=== PATIENT | female | born 1975 | race Caucasian/White ===

== ENCOUNTER 2019-08-26 16:47 | Outpatient (CLI) | payer OTHER, SELFPAY ==
--- NOTE | ~2019-08-26 | XR_ITS ---
EXAMINATION: XR chest 2V DATE: 08/26/2019 17:14 INDICATION: Cough and fever TECHNIQUE: PA and lateral views of the chest were obtained. COMPARISON: None FINDINGS: The lungs are clear with no focal airspace opacities, pulmonary edema, pleural effusion or pneumothor ax. The cardiomediastinal silhouette is normal. Visualized bones and soft tissues are unremarkable. IMPRESSION: 1. No acute cardiopulmonary disease. Reviewed, dictated and finalized at location A. [employer]
== END 2019-08-26 16:48 | disposition home or self-care (01) ==
LOC: ANHIMG 16:53
PROVIDERS: PCP Family Medicine; Visit Provider Physician Assistant
DX: R50.9 Fever, unspecified (principal); R05 Cough
CPT/HCPCS: 71046

== ENCOUNTER → 2019-10-23 10:25 | Outpatient (CLI) | payer OTHER, SELFPAY ==
--- NOTE | ~2019-10-23 | MM_ITS ---
EXAMINATION: MM screening [facility] BI w cash HISTORY: Screening mammogram TECHNIQUE: Craniocaudal and mediolateral oblique 3-D tomosynthesis images were obtained and synthetic 2-D images were generated. CAD analysis was submitted and interpreted. COMPARISON: 09/18/2018, 09/10/2017, 08/29/2016 BREAST PARENCHYMAL COMPOSITION: The breasts are extremely dense, which lowers the sensitivity of mamm ography. FINDINGS: RIGHT BREAST: There is an asymmetry in the anterior third of the slightly inner breast on the cranioc audal view 1 cm from the nipple. LEFT BREAST: There is no evidence of suspicious mass, calcification, or architectural distortion to s uggest malignancy. There has been no significant interval change. IMPRESSION: 1. Right breast asymmetry on the craniocaudal view. 2. Additional mammographic views and possible breast ultrasound are recommended. BI-RADS Category 0: Incomplete: Needs additional imaging evaluation. Reviewed, dictated and finalized at location A. IMPRESSION: 1. Right breast asymmetry on the craniocaudal view. 2. Additional mammographic views and possible breast ultrasound are recommended . BI-RADS Category 0: Incomplete: Needs additional imaging evaluation.
== END ==
PROVIDERS: PCP Family Medicine; Visit Provider Nurse Practitioner
DX: Z12.31 Encounter for screening mammogram for malignant neoplasm of breast (principal); R92.8 Other abnormal and inconclusive findings on diagnostic imaging of breast
CPT/HCPCS: 77063; 77067

== ENCOUNTER → 2019-10-28 07:44 | Outpatient (CLI) | payer OTHER, SELFPAY ==
--- NOTE | ~2019-10-28 | MMUS_ITS ---
EXAMINATION: MM diagnostic mammo unilat RT, US breast RT complete HISTORY: Asymmetry reported in anterior third of slightly inner right breast on screening mammogram o f 10/23/2019 TECHNIQUE: Additional 3-D tomosynthesis images of the right breast were performed and synthetic 2-D i mages were generated. CAD analysis was submitted and interpreted. Rolled medial and lateral craniocau edwin views. High resolution complete right breast ultrasound was performed. COMPARISON: 10/23/2019 bilateral digital screening mammogram FINDINGS: MAMMOGRAPHIC FINDINGS: No reproducible mass is evident. ULTRASOUND: There is no evidence of focal abnormal solid or cystic lesion or abnormal shadowing of the right [address]. IMPRESSION: 1. No mammographic evidence of malignancy 2. Routine annual mammographic screening is recommended. BI-RADS Category 1: Negative Reviewed, dictated and finalized at location A. IMPRESSION: 1. No mammographic evidence of malignancy 2. Routine annual mammographic screening is recommended. BI-RADS Category 1: Negative
== END ==
PROVIDERS: Visit Provider Obstetrics & Gynecology Gynecology
DX: R92.8 Other abnormal and inconclusive findings on diagnostic imaging of breast (principal)
CPT/HCPCS: 76641; 77065

== ENCOUNTER → 2020-12-27 17:23 | Outpatient (CLI) | payer OTHER, SELFPAY ==
--- NOTE | ~2020-12-27 | MM_ITS ---
EXAMINATION: MM screening [facility] BI w cash HISTORY: Screening mammogram TECHNIQUE: Craniocaudal and mediolateral oblique 3-D tomosynthesis images were obtained and synthetic 2-D images were generated. Bilateral rotated lateral craniocaudal views. CAD analysis was submitted and interpreted. COMPARISON: 10/28/2019 diagnostic right mammogram and complete right breast ultrasound 10/23/2019, 09/18/2018 bilateral digital screening mammogram examinations 09/10/2017 bilateral digital screening mammogram and complete left breast ultrasound 03/06/2017 complete left breast ultrasound 09/08/2016 bilateral complete breast ultrasound 08/29/2016 bilateral digital screening mammogram BREAST PARENCHYMAL COMPOSITION: The breasts are extremely dense, which lowers the sensitivity of mamm ography. FINDINGS: There is no evidence of suspicious mass, calcification, or architectural distortion to sugg est malignancy in either breast. There has been no suspicious interval change. IMPRESSION: 1. No mammographic evidence of malignancy. 2. Recommend routine screening mammography in one year. BI-RADS Category 1: Negative Reviewed, dictated and finalized at location A.
== END ==
PROVIDERS: Visit Provider Nurse Practitioner
DX: Z12.31 Encounter for screening mammogram for malignant neoplasm of breast (principal)
CPT/HCPCS: 77063; 77067

== ENCOUNTER 2021-07-17 08:02 | Emergency (ER) | payer OTHER, SELFPAY ==
[2021-07-17 08:12] VITALS: BP 120/63; PULSE 90; RESP 16; TEMP 37.4; O2SAT 100
--- NOTE | 2021-07-17 08:39 | ED.URI ---
HPI - URI/Sore Throat General Chief Complaint: Upper Respiratory Infection Stated Complaint: sore throat Time Seen by Provider: 07/17/21 08:29 Source: patient and RN notes reviewed Mode of arrival: ambulatory Limitations: no limitations History of Present Illness HPI Narrative: Patient presents today complaining of1 week history of cough, sore throat, postnasal drip, and hoarseness. Denies fever, shortness of breath, body aches. She did home Covid test 3 to 4 days ago and it was negative. She has been vaccinated against COVID-19. She has been taking ibuprofen and Aleve D with some relief. MD elicited complaint: cough and sore throat Related Data Home Medications Medication Instructions Recorded Confirmed levonorgestrel-ethinyl estradiol 1 tablet PO DAILY 06/23/19 07/17/21 0.1 mg-20 mcg tablet trazodone 50 mg PO HS PRN 07/17/21 07/17/21 Allergies Allergy/AdvReac Type Severity Reaction Status Date / Time lanolin Allergy Mild Rash Verified 08/26/19 15:57 Review of Systems Review of Systems: CONSTITUTIONAL: Denies body aches, fever, chills, or sweats. EYES: Denies visual changes, redness, or discharge. ENT: Denies rhinorrhea, congestion, or otalgia.+Sore throat, Postnasal drip, hoarseness CARDIOVASCULAR: Denies chest pain, palpitations, or edema. RESPIRATORY: Denies dyspnea.+Cough GASTROINTESTINAL: Denies abdominal pain, nausea, vomiting, or diarrhea. GENITOURINARY: Denies dysuria or hematuria. SKIN: Denies rash, itching, or wounds. MUSCULOSKELETAL: Denies back pain, joint pain, or myalgia. NEUROLOGIC: Denies headache, numbness, tingling, or weakness. PSYCH: Denies depression or anxiety. [facility] Surgical History Surgical History Status post endometrial ablation Family History Family History Father Hypertension Diabetes mellitus Social History Social History Smoking status: Never smoker Second hand tobacco smoke exposure: No Alcohol intake: current Alcohol use details: rare Substance use: never Substance use type: does not use Gender identity (if verbalized by the patient): Female Comments At time of signature, I have reviewed and agree with nursing past medical, surgical, social and family history unless otherwise noted. Please see nursing chart for further information. There is no relevant family history pertinent to the presenting complaint Exam Narrative: GENERAL: Well-appearing, well-nourished, and in no acute distress. HEAD: Normocephalic, atraumatic. EYES: EOMI. No redness or drainage. Conjunctivae normal. ENT: Mucous membranes pink and moist. Nares clear. No rhinorrhea. TMs normal bilaterally. Throat Mildly erythematous without edema or exudate. Uvula midline. Voice is slightly hoarse. NECK: Normal AROM. Supple. Bilateral anterior cervical chain lymphadenopathy. CHEST: No respiratory distress. Clear to auscultation. HEART: Regular rate and rhythm. No murmur appreciated. Normal peripheral pulses. EXTREMITIES: Normal range of motion. No edema. SKIN: Warm, dry, no rash. Capillary refill normal. Normal skin turgor. NEURO: No focal deficits. Alert and oriented x3. Gait steady. PSYCH: Normal affect. No signs of depression or anxiety. Course Vital Signs Vital signs: Vital Signs Temperature 99.3 F 07/17/21 08:12 Pulse Rate 90 07/17/21 08:12 Respiratory Rate 16 07/17/21 08:12 Blood Pressure 120/63 07/17/21 08:12 Pulse Oximetry 100 07/17/21 08:12 Temperature 99.3 F 07/17/21 08:12 Pulse Rate 90 07/17/21 08:12 Respiratory Rate 16 07/17/21 08:12 Blood Pressure 120/63 07/17/21 08:12 Pulse Oximetry 100 07/17/21 08:12 Reviewed MDM - URI/Sore Throat Differential Diagnosis Differential diagnosis: Likely upper respiratory infection, sinusitis, viral infection
== END 2021-07-17 08:58 | disposition home or self-care (01) ==
PROVIDERS: Emergency Provider Nurse Practitioner; PCP Family Medicine
DX: J04.0 Acute laryngitis (principal); J06.9 Acute upper respiratory infection, unspecified
CPT/HCPCS: 87081; 87880; 99213; G0463

== ENCOUNTER 2021-11-14 01:17 | Day surgery (SDC) | payer OTHER, SELFPAY ==
[2021-10-28 15:41] VITALS: BMI 21.5
[2021-11-14 07:39] VITALS: BP 100/85; PULSE 98; RESP 16; TEMP 36.7; O2SAT 100
[2021-11-14] MEDS: LACTATED RINGERS 1,000 ML 150 ML IV CONT (07:51)
--- NOTE | 2021-11-14 08:04 | P.PNAN_ITS ---
Anes - Initial Pre Proc Eval Procedure: Operation Date: 11/14/21 08:30 Proposed Procedures p Screening Colonoscopy - Ronn Cuba MD Date/Time: 11/14/21 08:04 Surgeon: Ronn Cuba MD Pre Op Diagnosis: neoplasm screening Patient Data Age: 46 Gender: F Height: 1.63 m Weight: 60.2 kg Last Vital Signs Temp 36.7 C 11/14/21 07:39 Pulse 98 11/14/21 07:39 Resp 16 11/14/21 07:39 BP 100/85 11/14/21 07:39 Pulse Ox 100 11/14/21 07:39 Allergies Allergy/AdvReac Type Severity Reaction Status Date / Time lanolin Allergy Mild Rash Verified 11/14/21 07:37 Home Medications Medication Instructions Recorded Confirmed Type levonorgestrel-ethinyl estradiol 1 tablet PO DAILY 06/23/19 11/14/21 History 0.1 mg-20 mcg tablet trazodone 50 mg PO HS PRN 07/17/21 11/14/21 History Patient hx anesthesia problems: none Family hx anesthesia problems: none Results Review: All pre-operative results and documents have been reviewed as part of the pre-operative evaluation. [facility] Surgical History Surgical History (Updated 11/14/21 @ 08:04 by Lev Moore MD) History of endometrial ablation Status post endometrial ablation Family History Family History Father Hypertension Diabetes mellitus Social History Social History Smoking status: Never smoker Second hand tobacco smoke exposure: No Alcohol intake: never Alcohol use details: rare Substance use: never Substance use type: does not use Living arrangements: with family Gender identity (if verbalized by the patient): Female Spiritual care concerns: No Anes - Eval Final PreProcedure Day of Procedure 11/14/21 08:04 Patient weight: normal Heart: regular rate and rhythm Lungs: clear to auscultation Airway: Mallampati scale class 1 Neurological: alert and oriented Last oral intake: >/= 8 hours ASA classification: I Emergent: no Anesthetic plan: proceed Anesthesia type and monitoring: general GIVS and standard monitoring Results Review: All pre-operative results and documents have been reviewed as part of the pre-operative evaluation. Informed Consent: The patient's anesthetic plan and its attendant risks and benefits were discussed with the patient/family/POA. Questions were solicited and answers provided to the satisfaction of the patient/family/POA.
--- NOTE | 2021-11-14 08:15 | WPDGICN ---
Assessment and Plan Assessment and plan (1) Family history of colonic polyps: Code(s): Z83.71 - Family history of colonic polyps Status: Acute Assessment and Plan: Family history is significant her mother had colon polyps a cousin had colon cancer. Plan is for surveillance colonoscopy now and consider this a 5 year intervals in the future. GI Consult Note Consult date/time: 11/14/21 08:15 HPI: Vivian Rodriguez is a 46 year old female Presents for screening colonoscopy. She has never had screening prior to this. Her current weight appetite bowel movements are normal. Family history is significant that her mother had colon polyps. A cousin had colon cancer at age 30. Her father has had ulcerative colitis. Patient reports her bowel habits are normal with no bleeding or difficulties. Patient does report having twisted her ankle yesterday it is swollen and she desires to go to the emergency room but prefers to defer this till after colonoscopy. Review of Systems Review of Systems: All systems reviewed & are unremarkable except as noted in HPI and below PMFSH Surgical History Surgical History (Updated 11/14/21 @ 08:04 by Lev Moore MD) History of endometrial ablation Status post endometrial ablation Family History Family History Father Hypertension Diabetes mellitus Social History Social History Smoking status: Never smoker Second hand tobacco smoke exposure: No Alcohol intake: never Alcohol use details: rare Substance use: never Substance use type: does not use Living arrangements: with family Gender identity (if verbalized by the patient): Female Spiritual care concerns: No Meds Home Medications and Allergies Home Medications Medication Instructions Recorded Confirmed Type levonorgestrel-ethinyl estradiol 1 tablet PO DAILY 06/23/19 11/14/21 History 0.1 mg-20 mcg tablet trazodone 50 mg PO HS PRN 07/17/21 11/14/21 History Allergies Allergy/AdvReac Type Severity Reaction Status Date / Time lanolin Allergy Mild Rash Verified 11/14/21 07:37 Vital Signs Vital Signs - 24 hr 11/14/21 07:39 Temperature 98.1 F Pulse Rate 98 Respiratory Rate 16 Blood Pressure 100/85 Pulse Oximetry 100 Exam Narrative: Physical exam reveals patient be alert. Vital signs stable. HEENT exam is and unremarkable. Patient is anicteric. Lungs are clear to auscultation and percussion. Heart is without murmur or extra sounds. Abdominal exam bowel sounds are present soft nontender with no hepatosplenomegaly. Digital external rectal exam is normal. Her left ankle is somewhat bruised and swollen.
[2021-11-14 08:42] VITALS: BP 101/56; PULSE 70; RESP 16; O2SAT 100
[2021-11-14 08:52] VITALS: BP 111/73; PULSE 74; RESP 16; O2SAT 100
--- NOTE | 2021-11-14 09:09 | SUR.PHASEII ---
pt had syncopal episode yesterday and sprained left ankle. pt discharged from postop area and taken to er for ankle evaluation.
== END 2021-11-14 09:06 | disposition home or self-care (01) ==
PROVIDERS: PCP Family Medicine; Visit Provider Internal Medicine Gastroenterology
PROC: 0DJD8ZZ Inspection of Lower Intestinal Tract, Via Natural or Artificial Opening Endoscopic (ICD-10-PCS; CPT 45378; principal; 2021-11-14 08:30)
DX: Z12.11 Encounter for screening for malignant neoplasm of colon (principal); Z83.71 Family history of colonic polyps
CPT/HCPCS: 45378; J2704; J7120

== ENCOUNTER 2021-11-14 09:17 | Emergency (ER) | payer OTHER, SELFPAY ==
--- NOTE | ~2021-11-14 | XR_ITS ---
XR tibia fibula LT 2V DATE: 11/14/2021 10:22 INDICATION: Fall. Pain, tenderness. Ankle pain TECHNIQUE: AP and lateral views COMPARISON: None FINDINGS: There is a linear oblique fracture of the neck and proximal shaft of the proximal fibula, w ith no significant displacement or angulation. There is a transverse nondisplaced fracture of the medial malleolus. There is lateral soft tissue swelling of the ankle. IMPRESSION: Proximal fibular and medial malleolar fractures Reviewed, dictated and finalized at location A.
--- NOTE | ~2021-11-14 | XR_ITS ---
EXAMINATION: XR ankle LT min 3V DATE: 11/14/2021 10:04 INDICATION: Medial sided left ankle pain post fall TECHNIQUE: Anteroposterior, oblique, mortise, and lateral views of the left ankle were obtained. COMPARISON: None. FINDINGS: Nondisplaced horizontal fracture across the medial malleolus with intra-articular extension at the le forest of the medial border of the ankle mortise. No other fractures identified. Joint spaces are normal . Soft tissue swelling about the left ankle most prominent of the lateral malleolus and extending ove r the dorsum of the midfoot. IMPRESSION: 1. Nondisplaced medial malleolar fracture. Reviewed, dictated and finalized at location B.
[2021-11-14 09:29] VITALS: BP 116/70; PULSE 79; RESP 16; TEMP 36.3; O2SAT 100
--- NOTE | 2021-11-14 10:09 | ED.LOWEXIN ---
HPI - Extremity Injury (Lower) General Chief Complaint: Extremity Injury, Lower Stated Complaint: Injury Time Seen by Provider: 11/14/21 09:59 History of Present Illness HPI Narrative: Patient is a 46-year-old female here for evaluation of left ankle pain after fall yesterday. Patient states she was prepping for a colonoscopy and felt lightheaded, passed out, and woke up on the ground. She did not hit her head in the injury. States that she woke up on her knees, with her feet bent under her buttocks. Since the injury she has reported severe left medial ankle pain. She had numbness for about 10 minutes in her left foot initially, but this resolved without intervention. She has been walking with lots of pain. She has not taken anything for the pain because of her colonoscopy. Underwent her colonoscopy this morning without issues. Related Data Home Medications Medication Instructions Recorded Confirmed levonorgestrel-ethinyl estradiol 1 tablet PO DAILY 06/23/19 11/14/21 0.1 mg-20 mcg tablet trazodone 50 mg PO HS PRN 07/17/21 11/14/21 Allergies Allergy/AdvReac Type Severity Reaction Status Date / Time lanolin Allergy Mild Rash Verified 11/14/21 07:37 Review of Systems Review of Systems: Gen: Denies fevers or chills Eyes: Denies eye pain or visual change ENT: Denies congestion Respiratory: Denies shortness of breath or cough CV: Denies chest pain or palpitations GI: Denies abdominal pain nausea, emesis or diarrhea denies burning, urgency, frequency or hematuria Musculoskeletal: Reports left ankle pain. Denies back pain or muscle pain Neuro: Denies numbness, tingling, weakness or focal weakness Skin: Denies rash Except as documented, all other systems reviewed and negative All systems reviewed & are unremarkable except as noted in HPI and below PMFSH Surgical History Surgical History History of endometrial ablation Status post endometrial ablation Family History Family History Father Hypertension Diabetes mellitus Social History Social History Smoking status: Never smoker Second hand tobacco smoke exposure: No Alcohol intake: never Alcohol use details: rare Substance use: never Substance use type: does not use Gender identity (if verbalized by the patient): Female Spiritual care concerns: No Exam Narrative: Gen: Pleasant, alert, oriented female Eyes: EOMI, no icterus Pulm: Respirations even and unlabored, symmetric thorax expansion, no audible stridor or visible cyanosis CV: 2+ DP and PT pulses bilaterally. Clear to auscultation. Regular rate. GI: No distension, no voluntary/involuntary guarding Neuro: Sensation intact over distal feet bilaterally. AOx4, moves all extremities without apparent difficulty or weakness, follows commands MSK: Tender to palpation over left medial malleolus with overlying swelling. Positive syndesmosis squeeze test on the left. Full range of motion in left foot with pain particularly with dorsiflexion and inversion. Sensation intact distally. Able to move toes without trouble. Skin: Pale ecchymosis over left medial malleolus. Psych: Normal mood/affect, insight/judgement good, adequate fund of knowledge, recent/remote memory intact Course Consultations Consultation #1: Spoke with Dr. Tinoco, recommended stirrup splint and will see in clinic, history suspicious for syndesmotic injury Date: 11/14/21 Time: 12:00 Vital Signs Vital signs: Vital Signs Temperature 97.4 F L 11/14/21 09:29 Pulse Rate 79 11/14/21 09:29 Respiratory Rate 16 11/14/21 09:29 Blood Pressure 116/70 11/14/21 09:29 Pulse Oximetry 100 11/14/21 09:29 Temperature 97.4 F L 11/14/21 09:29 Pulse Rate 84 11/14/21 12:10 Respiratory Rate 16 11/14/21 12:10 Blood Pressure 132/88 11/14/21 12:10 Pu
[2021-11-14] MEDS: IBUPROFEN 400 MG TABLET 800 MG PO (10:31)
[2021-11-14 12:10] VITALS: BP 132/88; PULSE 84; RESP 16; O2SAT 98
--- NOTE | 2021-11-24 07:42 | PC.NURSE ---
LATE ENTRY This note is being entered to document information to the patient's record. The following information was omitted on [11/14/21], by [nohelia knutson]. pt has a short leg stirrup to lower left extremity
== END 2021-11-14 12:15 | disposition home or self-care (01) ==
PROVIDERS: Emergency Provider Emergency Medicine; PCP Family Medicine
DX: S82.55XA Nondisplaced fracture of medial malleolus of left tibia, initial encounter for closed fracture (principal); S82.435A Nondisplaced oblique fracture of shaft of left fibula, initial encounter for closed fracture; W18.39XA Other fall on same level, initial encounter
CPT/HCPCS: 29515; 73590; 73610; 99284; A9270

== ENCOUNTER 2022-01-27 15:30 | Outpatient (RCR) | payer OTHER, SELFPAY ==
--- NOTE | 2021-12-16 15:26 | PTOPEVAL ---
PHYSICAL THERAPY INITIAL EVALUATION. Thank you for referring Vivian Rodriguez to [facility].? The patient is scheduled to be seen for therapy?2x/week for 6 weeks. Please review, sign, date and return this plan of care TREMAINE. I agree with and certify that the following plan of care is medically necessary. Referring Physician Date Attending Provider: Rick Tinoco MD *PT Outpatient Evaluation Start: 12/16/21 Evaluation Information Diagnosis L ankle fracture Onset 11/13/21 Subjective Information Pt states she fell an broke Query Text:As Reported By Patient/ her ankle. She has been trying Family to put more weight on it since she was told on 12/14/21 that she is now weight bearing as tolerated. She states she still has some swelling, she treats this with ice regularly . Pt has a home office in the basement, she has moved her office to the main level but would like it to be back downstairs. Pt states prior to her fall she was walking 9 miles a day. Pain Assessment Left Ankle(s) Reported Pain Level 0 Pain Description Tightness Pain Frequency Acute,Intermittent Lowest Pain Intensity 0 Greatest Pain Intensity 3 Pain Aggravating Factors Exercise/Activity Ankle/Foot Range of Motion Left Ankle Dorsiflexion With Knee Extension -10 active Ankle Dorsiflexion With Knee Extension 3 passive Ankle Dorsiflexion With Knee Flexed -10 active Ankle Dorsiflexion With Knee Flexed 0 passive Ankle Plantarflexion Range of Motion - 50 active Query Text: Ankle Eversion Range of Motion - Active 15 Ankle Eversion Range of Motion - Passive 20 Ankle Inversion Range of Motion - Active 20 Ankle Inversion Range of Motion -passive 25 Ankle Range of Motion Comments toe ROM WNL, midtarsal joint play is equal and pain free Foot/Toe Range of Motion Comments R ankle dorsiflexion with knee bend 12 R ankle plantarflexion 72 R ankle inversion 42 R ankle eversion 20 Lower Extremity Muscle Strength Testing Gross Lower Extremity Strength R single leg stance: 30s - test stopped L single leg stance: <1s unable to tolerate SLS due to pain An
--- NOTE | 2022-01-27 16:17 | PTOPEVAL ---
PHYSICAL THERAPY PROGRESS REPORT AND DISCHARGE SUMMARY. Thank you for referring Vivian Rodriguez to [facility].? The patient is to be discharged from skilled physical therapy services at this time. Please review, sign, date and return this plan of care TREMAINE. I agree with and certify that the following plan of care is medically necessary. Referring Physician Date Attending Provider: Rick Tinoco MD Evaluation Information Diagnosis L ankle fracture Onset 11/13/21 Subjective Information Pt states she is doing really Query Text:As Reported By Patient/ well she things. 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 She states she is walking 3 miles a day with only mild reports of ankle pain. Pt states she she is still planning to progress up to 9 miles a day. She rides 8 miles a day on a stationary bike. Pain Assessment Left Ankle(s) Reported Pain Level 0 Pain Description Aching Lowest Pain Intensity 0 Greatest Pain Intensity 1 Lower Extremity Range of Motion Ankle/Foot Range of Motion Left Ankle Dorsiflexion With Knee Extension 10 active Ankle Dorsiflexion With Knee Extension 15 passive Ankle Dorsiflexion With Knee Flexed 8 active Ankle Dorsiflexion With Knee Flexed 10 passive Ankle Plantarflexion Range of Motion - 60 active Ankle Eversion Range of Motion - Active 20 Ankle Eversion Range of Motion - Passive 25 Ankle Inversion Range of Motion - Active 25 Ankle Inversion Range of Motion -passive 30 Ankle Range of Motion Comments toe ROM WNL, midtarsal joint play is equal and pain free Foot/Toe Range of Motion Comments R ankle dorsiflexion with knee bend 12 R ankle plantarflexion 72 R ankle inversion 42 R ankle eversion 20 Lower Extremity Muscle Strength Testing Gross Lower Extremity Strength R single leg stance: 30s - test stopped L single leg stance: 30s - test stopped Ankle Strength Left Ankle Dorsiflexion Strength 5 Normal Ankle Eversion Strength 5 Normal Ankle Inversion Strength 5 Normal Balance Assessment Time Up Go (TUG) Timed Up and Go Test (TUG) (Seconds) 7 Comments Initially: 17s, with crutches 01/27/22: 7s without AD 5 Time Sit to Stand Time in Seconds
== END 2022-01-30 08:38 | disposition home or self-care (01) ==
LOC: ANHPT 15:30
PROVIDERS: PCP Family Medicine; Visit Provider Orthopaedic Surgery
DX: S82.52XD Displaced fracture of medial malleolus of left tibia, subsequent encounter for closed fracture with routine healing (principal)
CPT/HCPCS: 97110; 97112; 97116; 97140; 97161; 97530

== ENCOUNTER → 2022-03-16 16:41 | Outpatient (CLI) | payer OTHER, SELFPAY ==
--- NOTE | ~2022-03-16 | MM_ITS ---
EXAMINATION: MM screening [facility] BI w cash HISTORY: Screening TECHNIQUE: Craniocaudal and mediolateral oblique 3-D tomosynthesis images were obtained and synthetic 2-D images were generated. CAD analysis was submitted and interpreted. COMPARISON: Comparison to multiple prior studies sequentially, with oldest reviewed study dated 01/2017. BREAST PARENCHYMAL COMPOSITION: The breasts are extremely dense, which lowers the sensitivity of mamm ography FINDINGS: There is no evidence of suspicious mass, calcification, or architectural distortion to sugg est malignancy in either breast. There has been no suspicious interval change. IMPRESSION: 1. No mammographic evidence of malignancy. 2. Recommend routine screening mammography in one year. BI-RADS Category 1: Negative Reviewed, dictated and finalized at location A.
== END ==
PROVIDERS: PCP Family Medicine; Visit Provider Obstetrics & Gynecology Gynecology
DX: Z12.31 Encounter for screening mammogram for malignant neoplasm of breast (principal)
CPT/HCPCS: 77063; 77067

== ENCOUNTER → 2022-09-19 10:46 | Outpatient (CLI) | payer OTHER, SELFPAY ==
--- NOTE | ~2022-09-19 | US_ITS ---
EXAMINATION: US transvaginal DATE: 09/19/2022 11:37 INDICATION: Abdominal bloating Comparison:No prior studies for comparison. TECHNIQUE: Multiple endovaginal sonographic images of the pelvis performed. FINDINGS: The uterus measures 8.9 x 4.3 x 4.7 cm. There are multiple small uterine fibroids, largest measuring 3.5 cm. The endometrial complex measures 7 mm. The right ovary measures 2.5 x 1.4 x 2.1 cm and the left ovary measures 1.9 x 1.6 x 1.2 cm. There ar e small follicles in each ovary. Normal doppler signal in both ovaries. There is no free fluid in the pelvis. There are no abnormal masses seen on either side. IMPRESSION: 1. Multiple uterine fibroids, largest measuring up to 3.5 cm. Reviewed, dictated and finalized at location L. [employer] E[employer]IST
== END ==
PROVIDERS: PCP Family Medicine; Visit Provider Nurse Practitioner
DX: R14.0 Abdominal distension (gaseous) (principal); D25.9 Leiomyoma of uterus, unspecified
CPT/HCPCS: 76830

== ENCOUNTER 2024-01-22 15:46 | Outpatient (CLI) | payer OTHER, SELFPAY ==
--- NOTE | ~2024-01-22 | MM_ITS ---
EXAMINATION: MM screening marylin BI w cash HISTORY: Screening mammogram TECHNIQUE: Craniocaudal and mediolateral oblique 3-D tomosynthesis images were obtained and synthetic 2-D images were generated. CAD analysis was submitted and interpreted. COMPARISON: 03/16/2022, 12/27/2020, 10/28/2019 BREAST PARENCHYMAL COMPOSITION:Dense: The breasts are extremely dense, which lowers the sensitivity o f mammography. FINDINGS: No suspicious mass, calcification, or architectural distortion are identified in either brandie ast to suggest malignancy. There has been no suspicious interval change. IMPRESSION: No mammographic evidence of malignancy. Recommend routine screening mammography in one year. BI-RADS Category 1: Negative Reviewed, dictated and finalized at location M.
== END 2024-01-22 15:47 ==
LOC: MICIMG 15:47
PROVIDERS: PCP Nurse Practitioner; Visit Provider Nurse Practitioner
DX: Z12.31 Encounter for screening mammogram for malignant neoplasm of breast (principal)
CPT/HCPCS: 77063; 77067

== ENCOUNTER 2024-03-13 16:37 | Emergency (ER) | payer OTHER, SELFPAY ==
[2024-03-13 16:56] VITALS: BP 136/72; PULSE 71; RESP 18; TEMP 37.2; O2SAT 100
--- NOTE | 2024-03-13 17:37 | ED.SKABFB ---
HPI - Skin/Abscess/Foreign Bdy General Chief complaint: Skin/Abscess/Foreign Body Stated complaint: Rash Time Seen by Provider: 03/13/24 17:38 Source: patient, RN notes reviewed and old records reviewed Mode of arrival: ambulatory Limitations: no limitations History of Present Illness HPI narrative: 48 year old female who presents to [facility] care with complaints of rash to her face which started yesterday after noon on chin and has gradually noted spreading on left side of face, right side of mouth and left nares with none around eyes and small area on her upper chest area which is itchy. Patient reports that she has not used any new skin products, no new soaps.foods, medication or any new laundry products. Patient reports that she has inside outside dog that she was hugging on and could of gotten exposed to something then. MD complaint: rash Onset (ago): day(s) (day 2 of symptoms) Location: face and chest (upper chest) Severity: moderate Treatments prior to arrival: other (calamine lotion and ivydry) Related Data Home Medications Medication Instructions Recorded Confirmed levonorgestrel-ethinyl estradiol 1 tablet PO DAILY 06/23/19 03/13/24 0.1 mg-20 mcg tablet (Vienva) trazodone 50 mg tablet 50 mg PO HS PRN Sleep 07/17/21 03/13/24 Allergies Allergy/AdvReac Type Severity Reaction Status Date / Time lanolin Allergy Mild Rash Verified 12/19/22 15:59 Review of Systems Review of Systems: CONSTITUTIONAL: Denies fever, chills, or sweats. CARDIOVASCULAR: Denies chest pain, palpitations, or edema. RESPIRATORY: Denies cough or dyspnea. SKIN: Reports rash on chin starting on chin yesterday and spreading up left cheek,left nares, and by right side of mouth with concern of rash going to eyes, also small area to chest, states is itchy MUSCULOSKELETAL: Denies joint pain or myalgia. NEUROLOGIC: Denies headache, numbness, or weakness. All systems reviewed & are unremarkable except as noted in HPI and below PMFSH Past Medical History Medical History (Updated 03/14/24 @ 12:22 by Lisa Aburto NP) Fracture of left ankle Migraine Surgical History Surgical History History of endometrial ablation Status post endometrial ablation Family History Family History Father Hypertension Diabetes mellitus Mother Asthma Grandparent Cancer Diabetes mellitus Social History Social History Smoking status: Never smoker Second hand tobacco smoke exposure: No Alcohol intake: current Alcohol use details: rare Substance use: never Substance use type: does not use Living arrangements: with family Occupation/Education: occupation 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 There is no relevant family history pertinent to the presenting complaint Exam Narrative: GENERAL: Well-appearing, well-nourished, and in no acute distress. HEAD: Normocephalic, atraumatic. EYES: PERRLA, conjunctivae clear, and EOMI. ENT: Mucous membranes moist. Oropharynx without edema, erythema or lesions. NECK: Supple. No lymphadenopathy CHEST: Clear to auscultation. No respiratory distress. SAO2 100% on room air HEART: Regular rate and rhythm. SKIN: Warm, dry.? Patches of red raised rash to chin,right side of mouth,left nares,left cheek area and to upper chest area which is itchy NEURO:? Alert and oriented x3. PSYCH: Normal mood and affect Course Course Emergency Course: Patient is aware of diagnosis, understands and agrees to treatment plan.? Anticipatory guidance given.? Patient agrees to follow-up as directed and is aware of reaso
[2024-03-13] MEDS: methylPREDNISolone ACETATE 80 MG/ML VIAL IM (17:52)
== END 2024-03-13 18:07 | disposition home or self-care (01) ==
PROVIDERS: Emergency Provider Registered Nurse; PCP Family Medicine
DX: L25.9 Unspecified contact dermatitis, unspecified cause (principal)
CPT/HCPCS: 96372; 99213; G0463; J1010

== ENCOUNTER 2025-02-03 15:56 | Outpatient (CLI) | payer OTHER, SELFPAY ==
--- NOTE | ~2025-02-03 | MM_ITS ---
EXAMINATION: MM screening marylin BI w cash HISTORY: Screening TECHNIQUE: Craniocaudal and mediolateral oblique 3-D tomosynthesis images were obtained and synthetic 2-D images were generated. CAD analysis was submitted and interpreted. COMPARISON: Comparison to multiple prior studies sequentially, with oldest reviewed study dated 09/18. BREAST PARENCHYMAL COMPOSITION: Dense: The breasts are extremely dense, which lowers the sensitivity of mammography. FINDINGS: There is no evidence of suspicious mass, calcification, or architectural distortion to sugg est malignancy in either breast. There has been no suspicious interval change. IMPRESSION: 1. No mammographic evidence of malignancy. 2. Recommend routine screening mammography in one year. BI-RADS Category 1: Negative Reviewed, dictated and finalized at location B.
== END 2025-02-03 15:57 | disposition home or self-care (01) ==
PROVIDERS: PCP Nurse Practitioner; Visit Provider Nurse Practitioner
DX: Z12.31 Encounter for screening mammogram for malignant neoplasm of breast (principal)
CPT/HCPCS: 77063; 77067

== ENCOUNTER 2025-07-02 18:11 | Emergency (ER) | payer OTHER, SELFPAY ==
[2025-07-02 18:18] VITALS: BP 134/68; PULSE 70; RESP 18; TEMP 36.5; O2SAT 99
--- NOTE | 2025-07-02 18:26 | ED.FEMALEGU ---
HPI - Female Genitourinary General Chief complaint: Urogenital-Female Stated complaint: Urinary Problem Time Seen by Provider: 07/02/25 18:20 Source: patient and RN notes reviewed Mode of arrival: ambulatory Limitations: no limitations History of Present Illness HPI Narrative: 49-year-old female presents Express Care complaining of urinary symptoms for 6 days. Patient reports having dysuria, increased frequency, hesitancy, and hematuria. Patient denies any fevers, abdominal pain, body aches, chills, nausea, vomiting, diarrhea, vaginal bleeding, vaginal discharge. Patient took Azos today to help with symptoms.. Patient denies any significant past medical history. Related Data Home Medications ?Medication ?Instructions ?Recorded ?Confirmed ?Last Taken ?Type levonorgestrel-ethinyl estradiol 1 tablet PO DAILY 06/23/19 03/24/25 11/12/21 History 0.1 mg-20 mcg tablet (Vienva) trazodone 50 mg tablet 50 mg PO HS PRN Sleep 07/17/21 03/24/25 11/12/21 History Allergies Allergy/AdvReac Type Severity Reaction Status Date / Time lanolin Allergy Mild Rash Verified 07/02/25 18:13 Review of Systems Review of Systems: CONSTITUTIONAL: Denies fever, chills, body aches, or sweats. EYES: Denies visual changes, redness, or discharge. ENT: Denies rhinorrhea, congestion, sore throat, or otalgia. CARDIOVASCULAR: Denies chest pain, palpitations, or edema. RESPIRATORY: Denies cough or dyspnea. GASTROINTESTINAL: Denies abdominal pain, nausea, vomiting, or diarrhea. GENITOURINARY: Positive for dysuria, increased frequency, hesitancy, hematuria. Negative for vaginal bleeding or discharge. SKIN: Denies rash or itching. MUSCULOSKELETAL: Denies back pain, joint pain, or myalgia. NEUROLOGIC: Denies headache, numbness, or weakness. PSYCHIATRIC: Denies anxiety or depression. All other systems reviewed are negative, except as documented in HPI. [facility] Past Medical History Medical History Hereditary essential tremor Fracture of left ankle Migraine Surgical History Surgical History History of endometrial ablation Status post endometrial ablation Family History Family History Father Hypertension Diabetes mellitus Mother Asthma Grandparent Cancer Diabetes mellitus Social History Social History Smoking status: Never smoker Second hand tobacco smoke exposure: No Alcohol intake: current Alcohol use details: rare Substance use: never Substance use type: does not use Living arrangements: with family Occupation/Education: occupation 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 There is no relevant family history pertinent to the patient complaint. Exam Narrative: GENERAL: This is a well-nourished, well-developed adult, in no apparent distress. They are non ill-appearing, nontoxic appearing. HEAD: normocephalic, atraumatic. EYES: Sclera clear/white. Vision is grossly intact. Conjunctiva normal bilaterally. Extraocular movements intact. EARS: External ears normal,Hearing grossly intact. NOSE: External nose normal THROAT: Mucous membranes moist NECK: Normal range of motion CARDIOVASCULAR: Regular rate and rhythm. Normal S1-S2. No clicks, gallops, rubs, murmurs. RESPIRATORY: Respiratory rate normal, respiratory effort nonlabored, no respiratory distress. Lung sounds clear to auscultation throughout. Lung sounds equal bilaterally. No adventitious lung sounds. GASTROINTESTINAL: Abdomen soft, flat, non-tender, nondistended. Bowel sounds are active. No hepato-splenomegaly, or palpable masses. No guarding or rigidity. No rebound tenderness. SKIN: warm, Dry, intact with no suspicious lesions or rash, good texture and turgor. NEURO: awake, alert, and oriented to person, place and time. There were no obvious focal neurologic abnormalities. EXTREMITIES: No joint tenderness, effusion, or edema noted. BACK: Nontender without deformity. No CVA tenderness. Course Course Level of Care: Express Care Visit Vital Signs Vital signs: Vital Signs Temperature 97.7 F 07/02/25 18:18 Pulse Rate 70 07/02/25 18:18 Respiratory Rate 18 07/02/25 18:18 Blood Pressure 134/68 07/02/25 18:18 Pulse Oximetry 99 07/02/25 18:18 Oxygen Delivery Room Air 07/02/25 18:18 Temperature 97.7 F 07/02/25 18:18 Pulse Rate 70 07/02/25 18:18 Respiratory Rate 18 07/02/25 18:18 Blood Pressure 134/68 07/02/25 18:18 Pulse Oximetry 99 07/02/25 18:18 Oxygen Delivery Room Air 07/02/25 18:18 MDM MDM Narrative Medical decision making narrative: Urine dipstick shows evidence nitrates, blood, leukocytes, patient did take Azos this could alter the results of the urine, urine appeared to be dark yellow in presentation. Urine culture is pending. Symptoms clinically consistent with urinary tract infection. Will go ahead and treat with Macrobid. Discussed physical exam findings. Advised supportive measures and signs/symptoms to go to the ER. Pt is appropriate for outpt treatment and f/u. Differential Diagnosis Differential Diagnosis: Urinary tract infection, cystitis, pyelonephritis, kidney stone Discharge Plan Discharge Clinical Impression: Urinary tract infection Qualifiers: Urinary tract infection type: site unspecified Hematuria presence: with hematuria Qualified Code(s): N39.0 - Urinary tract infection, site not specified Patient Disposition: Home Condition: Stable Instructions: Antibiotic Form, Urinary Tract Infection in Women (ED) Additional Instructions: Take the antibiotic as prescribed The urine will be sent of for a culture to identify what type of bacteria is causing your infection. If the culture shows that the antibiotic will not get rid of your infection, you will be notified and a new antibiotic will be called in for you. Increase water intake you will need to follow up with your PCP 3-5 days. Go to the ER for any worsening symptoms, abdominal pain, fevers, nausea, vomiting, or any other concerns Patient Language: [place] Prescriptions: New nitrofurantoin monohyd/m-cryst [Macrobid] 100 mg capsule 100 mg PO Q12H 5 Days Qty: 10 0RF Rx Instructions: must administer with a meal/food No Action trazodone 50 mg tablet 50 mg PO HS PRN (Reason: Sleep) famotidine [Pepcid] 20 mg tablet 20 mg PO DAILY Qty: 20 0RF levonorgestrel-ethinyl estrad [Vienva] 0.1-20 mg-mcg tablet 1 tablet PO DAILY primidone 50 mg tablet 100 mg PO .qd Qty: 180 3RF Follow-up/Referrals: Heath Churchill MD [Primary Care Provider, Family Practice] Time of Disposition: 18:32
[2025-07-02 18:39] LABS: EDUAAPPEAR Clear; EDUABILI Negative (Negative); EDUABLOOD 2+ (Negative); EDUACOLOR1 Yellow; EDUAGLUCOSE Negative (Negative); EDUAKETONE Negative (Negative); EDUALEUKO Trace (Negative); EDUANITRATE Positive (Negative); EDUAPH 6.5; EDUAPROTEIN Negative (Negative); EDUASPGRAVITY 1.020; EDUAUROBILI 0.2
[2025-07-02 19:21] VITALS: BP 110/59; PULSE 110; RESP 20; TEMP 38.1; O2SAT 98
== END 2025-07-02 18:38 | disposition home or self-care (01) ==
PROVIDERS: PCP Family Medicine
DX: N39.0 Urinary tract infection, site not specified (principal)
CPT/HCPCS: 81003; 87086; 87186; 99213; G0463